=== PATIENT | female | born 1990 | race Caucasian/White ===

== ENCOUNTER 2019-02-16 18:23 | Inpatient (IN) | payer OTHER ==
[~2019-02-16] VITALS: Ht 170.2 cm; Wt 78.0 kg
[2019-02-18] MEDS ORDERED: OXYTOCIN 30U/ 0.9% NaCL 500ML 500 ML IV ONE (06:44)
[2019-02-18] MEDS ORDERED: OXYTOCIN 30U/ 0.9% NaCL 500ML 500 ML IV PRN (06:44)
[2019-02-18] MEDS ORDERED: D5%-LACTATED RINGERS 1,000 ML IV SCH (06:44)
[2019-02-18] MEDS ORDERED: ALUMINUM/MAG/SIMETHICONE 30 ML UDC PO PRN (07:00)
[2019-02-18] MEDS ORDERED: FENTANYL PF 100 MCG/2ML IVPush PRN (07:00)
[2019-02-18] MEDS ORDERED: ONDANSETRON 2MG/ML, 2ML IVPush PRN (07:00)
[2019-02-18] MEDS ORDERED: PLEASE ENTER ALLERGIES MC SCH (07:00)
[2019-02-18] MEDS ORDERED: METOCLOPRAMIDE 5 MG/ML, 2ML IVPush PRN (07:00)
[2019-02-18] MEDS ORDERED: FENTANYL PF 100 MCG/2ML IV PRN (07:00)
[2019-02-18] MEDS ORDERED: NEWBORN KIT ONE (07:03)
[2019-02-18] MEDS ORDERED: MISOPROSTOL 25 MCG TABLET ONE ×2 (07:04→11:54)
[2019-02-18] MEDS ORDERED: OXYTOCIN 30U/ 0.9% NaCL 500ML 500 ML ONE (07:04)
[2019-02-18] MEDS: MISOPROSTOL 25 MCG TABLET VG PRN ×2 (07:30→11:56)
[2019-02-18 07:31] LABS: BASOPHILS # (AUTO) 0.03 x10^3/uL (0-0.1); BASOPHILS % (AUTO) 1 % (0-1); EOSINOPHILS # (AUTO) 0.11 x10^3/uL (0-0.4); EOSINOPHILS % (AUTO) 2 % (1-7); LYMPHOCYTES # (AUTO) 1.83 x10^3/uL (1-3.4); LYMPHOCYTES % (AUTO) 26 % (22-44); MD NO; MEAN CORPUSCULAR HGB CONC 33.1 g/dL (32.4-35.8); MEAN CORPUSCULAR VOLUME 93.8 fL (80-100); MEAN PLATELET VOLUME 8.1 fL (7.4-10.4); MONOCYTES # (AUTO) 0.53 x10^3/uL (0.2-0.8); MONOCYTES % (AUTO) 8 % (2-9); NEUTROPHILS % (AUTO) 64 % (42-75); PLATELET COUNT 196 x10^3/uL (130-400); RED BLOOD COUNT 4.22 x10^6/uL (3.82-5.3); RED CELL DISTRIBUTION WIDTH 14.2 % (9.6-15.2)
[2019-02-18] MEDS: LACTATED RINGERS 1,000 ML IV SCH ×4 (07:31→19:30)
[2019-02-18] MEDS ORDERED: PREN-3 PO (10:43)
[2019-02-18] MEDS ORDERED: FENTANYL/BUPIV./NS/PF 250 ML EPIDCONT SCH ×2 (16:39→17:04)
[2019-02-18] MEDS ORDERED: LACTATED RINGERS 1,000 ML IVBOLUS PRN ×2 (17:00→17:30)
[2019-02-18] MEDS ORDERED: EPHEDRINE 50 MG/ML, 1ML IVPush PRN ×2 (17:00→17:30)
[2019-02-18] MEDS ORDERED: FENTANYL PF 500 MCG, BUPIVACAINE/PF 0.5%, 30ML 62.5 ML in SODIUM CHLORIDE 0.9% 177.5 ML EPIDCONT SCH (17:00)
[2019-02-18] MEDS ORDERED: LACTATED RINGERS 1,000 ML IV SCH (17:04)
[2019-02-18] MEDS ORDERED: LIDOCAINE/PF 1.5%-EPI 1:200K, 30ML ONE (17:07)
[2019-02-18] MEDS ORDERED: NALOXONE 0.4 MG/ML, 1ML IVPush PRN (17:30)
[2019-02-18] MEDS ORDERED: LACTATED RINGERS 1,000 ML INTUTE SCH (20:00)
[2019-02-18] MEDS ORDERED: LACTATED RINGERS 1,000 ML INTUTE PRN (20:00)
[2019-02-18] MEDS ORDERED: MISOPROSTOL 200 MCG TABLET ONE (20:08)
[2019-02-18] MEDS ORDERED: LIDOCAINE 1%, 20ML ONE (20:08)
[2019-02-19] MEDS: LACTATED RINGERS 1,000 ML IV SCH (00:39)
[2019-02-19] MEDS ORDERED: MISOPROSTOL 200 MCG TABLET PR PRN (02:30)
[2019-02-19] MEDS ORDERED: METHYLERGONOVINE 0.2 MG/ML IM PRN (02:30)
[2019-02-19] MEDS ORDERED: GLYCERIN ADULT SUPP PR PRN (02:30)
[2019-02-19] MEDS ORDERED: ACETAMINOPHEN 325 MG TABLET PO PRN (02:30)
[2019-02-19] MEDS ORDERED: METOCLOPRAMIDE 5 MG/ML, 2ML IV PRN (02:30)
[2019-02-19] MEDS ORDERED: ONDANSETRON 2MG/ML, 2ML IV PRN (02:30)
[2019-02-19] MEDS ORDERED: OXYcodone IR 5MG TABLET PO PRN (02:30)
[2019-02-19] MEDS ORDERED: CARBOPROST TROMETHAMINE 250 MCG/ML, 1ML IM PRN (02:30)
[2019-02-19] MEDS ORDERED: BISACODYL 10 MG SUPP PR PRN (02:30)
[2019-02-19] MEDS ORDERED: OXYTOCIN 30U/ 0.9% NaCL 500ML 500 ML ONE (02:58)
[2019-02-19] MEDS ORDERED: IBUPROFEN 600 MG TABLET ONE (02:58)
[2019-02-19] MEDS: IBUPROFEN 600 MG TABLET PO PRN ×4 (03:02→22:41)
[2019-02-19] MEDS: OXYTOCIN 30U/ 0.9% NaCL 500ML 500 ML IV SCH ×3 (03:02→22:01)
[2019-02-19 05:45] VITALS: BP 107/73
[2019-02-19 07:15] VITALS: BP 103/69
[2019-02-19] MEDS: PRENATAL VIT/IRON/FA 1 EACH TABLET PO SCH (09:00)
[2019-02-19] MEDS: OXYcodone/APAP 5/325MG TABLET PO PRN ×3 (10:13→22:41)
[2019-02-19 12:15] VITALS: BP 105/78
[2019-02-19 16:30] VITALS: BP 91/59
[2019-02-19] MEDS: FERROUS SULFATE 325 MG TABLET PO SCH (16:35)
[2019-02-19 19:59] LABS: BASOPHILS # (AUTO) 0.03 x10^3/uL (0-0.1); BASOPHILS % (AUTO) 0 % (0-1); EOSINOPHILS # (AUTO) 0.18 x10^3/uL (0-0.4); EOSINOPHILS % (AUTO) 1 % (1-7); LYMPHOCYTES # (AUTO) 3.07 x10^3/uL (1-3.4); LYMPHOCYTES % (AUTO) 21 % (22-44); MD NO; MEAN CORPUSCULAR HGB CONC 33.5 g/dL (32.4-35.8); MEAN CORPUSCULAR VOLUME 95.6 fL (80-100); MEAN PLATELET VOLUME 8.7 fL (7.4-10.4); MONOCYTES # (AUTO) 0.55 x10^3/uL (0.2-0.8); MONOCYTES % (AUTO) 4 % (2-9); NEUTROPHILS # (AUTO) 11.07 x10^3/uL (1.8-6.8); NEUTROPHILS % (AUTO) 74 % (42-75); PLATELET COUNT 172 x10^3/uL (130-400); RED BLOOD COUNT 3.76 x10^6/uL (3.82-5.3); RED CELL DISTRIBUTION WIDTH 14.1 % (9.6-15.2)
[2019-02-19 20:05] VITALS: BP 93/58
[2019-02-19] MEDS: DOCUSATE 100 MG CAPSULE PO PRN (22:41)
[2019-02-20 00:45] VITALS: BP 107/65
[2019-02-20] MEDS: OXYcodone/APAP 5/325MG TABLET PO PRN (06:06)
[2019-02-20] MEDS: IBUPROFEN 600 MG TABLET PO PRN (06:06)
[2019-02-20 08:00] VITALS: BP 115/79
[2019-02-20] MEDS: DOCUSATE 100 MG CAPSULE PO PRN (09:45)
[2019-02-20] MEDS: PRENATAL VIT/IRON/FA 1 EACH TABLET PO SCH (09:45)
[2019-02-20] MEDS: FERROUS SULFATE 325 MG TABLET PO SCH (09:45)
[2019-02-20] MEDS ORDERED: IBUP-1222 PO (11:24)
[2019-02-20] MEDS ORDERED: OXYC-302 PO (11:25)
[2019-02-20] MEDS ORDERED: DOCU-131 PO (11:26)
== END 2019-02-20 13:50 | disposition home or self-care (01) | DRG 807 ==
LOC: LDIP 02-18 06:01 → 2NW 02-19 05:23
PROVIDERS: ADMIT Obstetrics & Gynecology; ATTEND Obstetrics & Gynecology
PROC: 10E0XZZ Delivery of Products of Conception, External Approach (ICD-10-PCS; principal; 2019-02-19)
PROC: 10907ZC Drainage of Amniotic Fluid, Therapeutic from Products of Conception, Via Natural or Artificial Opening (ICD-10-PCS; 2019-02-19)
PROC: 3E0P7VZ Introduction of Hormone into Female Reproductive, Via Natural or Artificial Opening (ICD-10-PCS; 2019-02-19)
PROC: 3E0R3BZ Introduction of Anesthetic Agent into Spinal Canal, Percutaneous Approach (ICD-10-PCS; 2019-02-19)
PROC: 00HU33Z Insertion of Infusion Device into Spinal Canal, Percutaneous Approach (ICD-10-PCS; 2019-02-19)
PROC: 0W8NXZZ Division of Female Perineum, External Approach (ICD-10-PCS; 2019-02-19)
DX: O80 Encounter for full-term uncomplicated delivery (principal); Z37.0 Single live birth; Z14.1 Cystic fibrosis carrier; Z3A.40 40 weeks gestation of pregnancy
CPT/HCPCS: 36415; S0020; 85025; 86850; 86900; G0378; J3010; J2590; J7050; J7120